=== PATIENT | female | born 2000 | race African-American/Black ===

== ENCOUNTER 2022-05-02 15:36 | Inpatient (IN) ==
[2022-05-02] MEDS ORDERED: MAGNESIUM SULF RIDER 4 GM/100 ML PREMIX IV ONE ×2 (16:47→16:49)
[2022-05-02] MEDS ORDERED: LABETALOL 100 MG/20 ML VIAL IV PRN ×3 (16:48→16:52)
[2022-05-02] MEDS: LACTATED RINGERS 1,000 ML IV SCH (16:57)
[2022-05-02] MEDS ORDERED: LABETALOL 200 MG TABLET PO SCH ×2 (17:09→21:00)
[2022-05-02 17:10] LABS: Basophils % 0.3 % (0.0-0.8); Eosinophils # 0.1 10*3/uL (0.0-0.87); Hematocrit 35.1 VOL% (35.7-47.0); Hemoglobin 12.1 GM/DL (12.0-16.0); Immature Granulocytes % 0.3 %; Immature Granulocytes Absolute 0.02 #; Lymphocytes # 2.2 10*3/uL (1.4-4.0); Lymphocytes % 31.7 % (21.3-54.2); Mean Corpuscular HGB Conc 34.5 GM/DL (32-36); Mean Corpuscular Volume 90.9 FL (87-102); Mean Platelet Volume 12.6 FL (9.6-12.0); Monocytes # 0.6 10*3/uL (0.11-0.8); Monocytes % 8.2 % (1.7-12.7); Neutrophils % 58.5 % (38.7-73.9); Platelet Count 167 T/CUMM (130-400); Red Blood Count 3.86 MC/CUMM (3.8-5.5); Red Cell Distribution Width 13.4 % (9.3-17.3); White Blood Count 7.1 T/CUMM (4-12)
[2022-05-02] MEDS: MAGNESIUM SULF DRIP 40 GM/1,000 ML ML IV SCH (17:10)
[2022-05-02] MEDS: BETAMETH SODIUM PHOS/ACETATE 30 MG/5 ML VIAL IM SCH (17:15)
[2022-05-02 17:19] LABS: Glucose,Urine (UA) Negative (Negative); Protein,Urine >=300 mg/dL (Negative); Urine Appearance Clear (Clear); Urine Color Yellow (Yellow); Urine Specific Gravity >= 1.030 (1.001-1.035); Urine pH 6.5 (4.5-8.0)
[2022-05-02 17:20] LABS: Bilirubin,Urine Negative (Negative); Blood, Urine Moderate mg/dL (Negative); Ketones,Urine Negative (Negative); Nitrite,Urine Negative (Negative); Urine Urobilinogen 0.2 eU/dL (<2.0)
[2022-05-02 17:24] LABS: Bacteria,Urine Occasional /HPF (Few); Hyaline Casts,Urine 45 /LPF (0-3); Mucus,Urine Occasional /LPF (Occasional); RBC,Urine 5 /HPF (0-4); Squamous Epithelial Cell,Urine Occasional /HPF (0-10)
[2022-05-02 17:31] LABS: INR 0.8; PT Patient Result 9.3 SECS (10.1-12.1); Partial Thromboplastin Time 25.3 SECS (23.7-32.9)
[2022-05-02 17:38] LABS: Alanine Aminotransferase 21 U/L (13-56); Albumin 2.3 G/DL (3.4-5.0); Alkaline Phosphatase 85 U/L (45-117); Aspartate Amino Transferase 30 U/L (0-37); Bilirubin,Direct < 0.050 MG/DL (0.0-0.20); Bilirubin,Total < 0.39 MG/DL (0.20-1.00); Blood Urea Nitrogen 13 MG/DL (7-18); Calcium 9.4 MG/DL (8.5-10.1); Carbon Dioxide 21 MMOL/L (21-32); Chloride 108 MMOL/L (98-107); Glucose 81 MG/DL (74-106); Osmolality,Calculated 271.8 MOS/KG (273-304); Potassium 4.1 MMOL/L (3.5-5.1); Sodium 137 MMOL/L (136-145); Total Protein 6.2 G/DL (6.4-8.2); Uric Acid 6.5 MG/DL (2.6-6.0)
[2022-05-02] MEDS: PANTOPRAZOLE 40 MG VIAL IV SCH (17:47)
[2022-05-02] MEDS ORDERED: hydrALAZINE 20 MG/1 ML VIAL ONE (18:27)
[2022-05-02] MEDS ORDERED: hydrALAZINE 20 MG/1 ML VIAL IV ONE ×2 (18:28→19:42)
[2022-05-02 21:33] LABS: Protein/Creatinine Ratio,Urine 52.7 RATIO
[2022-05-02] MEDS ORDERED: METHYLERGONOVINE 0.2 MG/1 ML AMP IM PRN (22:11)
[2022-05-02] MEDS ORDERED: ACETAMINOPHEN 325 MG TABLET PO PRN (22:11)
[2022-05-02] MEDS ORDERED: BUTORPHANOL 2 MG/ML VIAL IV PRN (22:11)
[2022-05-02] MEDS ORDERED: MEPERIDINE 25 MG/1 ML VIAL IM PRN (22:11)
[2022-05-02] MEDS ORDERED: TRANEXAMIC ACID 1,000 MG in SODIUM CHLORIDE 0.9% 100 ML IV PRN (22:11)
[2022-05-02] MEDS ORDERED: CARBOPROST TROMETHAMINE 250 MCG/ML AMP IM PRN (22:11)
[2022-05-02] MEDS ORDERED: miSOPROStoL 200 MCG TABLET RECTAL PRN (22:11)
[2022-05-02] MEDS ORDERED: OXYTOCIN/LR 20 UNIT/1,000 ML BAG IV ONE (22:11)
[2022-05-02] MEDS ORDERED: LACTATED RINGERS 500 ML IV PRN (22:11)
[2022-05-03] MEDS: LACTATED RINGERS 1,000 ML IV SCH ×2 (06:05→19:25)
[2022-05-03] MEDS: PANTOPRAZOLE 40 MG VIAL IV SCH (08:28)
[2022-05-03] MEDS ORDERED: LABETALOL 200 MG TABLET PO SCH (08:30)
[2022-05-03] MEDS: MAGNESIUM SULF DRIP 40 GM/1,000 ML ML IV SCH (13:15)
[2022-05-03 15:14] LABS: Basophils % 0.1 % (0.0-0.8); Hematocrit 35.1 VOL% (35.7-47.0); Hemoglobin 11.7 GM/DL (12.0-16.0); Immature Granulocytes % 0.6 %; Immature Granulocytes Absolute 0.06 #; Lymphocytes # 1.3 10*3/uL (1.4-4.0); Lymphocytes % 12.4 % (21.3-54.2); Mean Corpuscular HGB Conc 33.3 GM/DL (32-36); Mean Corpuscular Volume 93.1 FL (87-102); Mean Platelet Volume 12.2 FL (9.6-12.0); Monocytes # 0.9 10*3/uL (0.11-0.8); Monocytes % 8.5 % (1.7-12.7); Neutrophils % 78.4 % (38.7-73.9); Platelet Count 175 T/CUMM (130-400); Red Blood Count 3.77 MC/CUMM (3.8-5.5); Red Cell Distribution Width 13.9 % (9.3-17.3); White Blood Count 10.1 T/CUMM (4-12)
[2022-05-03 15:35] LABS: Alanine Aminotransferase 22 U/L (13-56); Albumin 2.4 G/DL (3.4-5.0); Alkaline Phosphatase 78 U/L (45-117); Aspartate Amino Transferase 24 U/L (0-37); Bilirubin,Total < 0.39 MG/DL (0.20-1.00); Blood Urea Nitrogen 13 MG/DL (7-18); Calcium 8.6 MG/DL (8.5-10.1); Carbon Dioxide 19 MMOL/L (21-32); Chloride 104 MMOL/L (98-107); Glucose 111 MG/DL (74-106); Osmolality,Calculated 270.1 MOS/KG (273-304); Potassium 4.3 MMOL/L (3.5-5.1); Sodium 135 MMOL/L (136-145); Total Protein 5.7 G/DL (6.4-8.2)
[2022-05-03] MEDS: LABETALOL 100 MG TABLET PO SCH ×2 (16:47→23:49)
[2022-05-03] MEDS: BETAMETH SODIUM PHOS/ACETATE 30 MG/5 ML VIAL IM SCH (17:45)
[2022-05-03 18:02] LABS: Total Protein 24 Hr Ur Result 4368 MG/24HR (0-149.1); Total Volume,Urine 1400 ML (400-2000)
[2022-05-03 18:43] LABS: Creatinine Clearance Urine 91.32 ML/MIN (70-115)
[2022-05-04] MEDS: LABETALOL 100 MG TABLET PO SCH (08:20)
[2022-05-04] MEDS: MAGNESIUM SULF DRIP 40 GM/1,000 ML ML IV SCH (09:01)
[2022-05-04] MEDS: MULTIVITAMIN (PRENATAL) TABLET PO SCH (09:27)
[2022-05-04] MEDS: PANTOPRAZOLE 40 MG VIAL IV SCH (09:28)
[2022-05-04] MEDS ORDERED: ceFAZolin 3,000 MG in SYRINGE 1 EACH IV ONE (11:27)
[2022-05-04] MEDS ORDERED: CITRIC ACID/SODIUM CITRATE 30 ML UDCUP PO ONE (11:27)
[2022-05-04] MEDS ORDERED: OXYTOCIN/LR 20 UNIT/1,000 ML BAG IV ONE ×3 (11:27→15:20)
[2022-05-04] MEDS ORDERED: FAMOTIDINE 20 MG/2 ML VIAL IV ONE (11:27)
[2022-05-04] MEDS ORDERED: miSOPROStoL 200 MCG TABLET ONE (12:54)
[2022-05-04] MEDS ORDERED: TRANEXAMIC ACID 1,000 MG/10 ML VIAL ONE (12:54)
[2022-05-04] MEDS ORDERED: SODIUM CHLORIDE 0.9% 0 ML IV ONE (12:54)
[2022-05-04] MEDS ORDERED: CARBOPROST TROMETHAMINE 250 MCG/ML AMP IM ONE (12:55)
[2022-05-04] MEDS ORDERED: ACETAMINOPHEN INJ 1,000 MG/100 ML VIAL IV ONE (13:09)
[2022-05-04] MEDS ORDERED: buprenorphine HCL 0.3 MG/ML VIAL ONE (13:09)
[2022-05-04] MEDS ORDERED: ONDANSETRON 4 MG/2 ML VIAL ONE (13:09)
[2022-05-04] MEDS ORDERED: PHENYLEPHRINE 1 MG/10 ML SYRINGE IV ONE (13:09)
[2022-05-04] MEDS ORDERED: KETOROLAC 30 MG/1 ML VIAL ONE ×2 (13:09→14:12)
[2022-05-04] MEDS ORDERED: TISSUE ADHESIVE 1 EACH APPLICATOR TOP ONE (13:39)
[2022-05-04] MEDS ORDERED: OXYTOCIN 10 UNIT/ML VIAL ONE (14:07)
[2022-05-04 14:24] LABS: Cord Arterial Blood HCO3 20.3 MMOL/L
[2022-05-04 14:28] LABS: Cord Venous Blood HCO3 20.4 MMOL/L; Cord Venous Blood PCO2 49.9 MMHG; Cord Venous Blood PO2 19.3
[2022-05-04] MEDS ORDERED: ACETAMINOPHEN 325 MG TABLET PO PRN (15:20)
[2022-05-04] MEDS ORDERED: SIMETHICONE CHEW 80 MG TABLET PO PRN (15:20)
[2022-05-04] MEDS ORDERED: RHO(D) IMMUNE GLOBULIN 300 MCG SYRINGE IM ONE (15:20)
[2022-05-04] MEDS ORDERED: ONDANSETRON 4 MG/2 ML VIAL IV PRN (15:20)
[2022-05-04] MEDS ORDERED: LACTATED RINGERS 1,000 ML IV SCH (15:30)
[2022-05-04] MEDS: LACTATED RINGERS 1,000 ML IV SCH (16:27)
[2022-05-04] MEDS: IBUPROFEN 800 MG TABLET PO PRN (17:47)
[2022-05-04] MEDS ORDERED: LABETALOL 100 MG TABLET PO SCH (21:00)
[2022-05-04] MEDS: DOCUSATE SODIUM 100 MG CAPSULE PO SCH (21:20)
[2022-05-05 03:56] LABS: Basophils % 0.1 % (0.0-0.8); Hematocrit 32.7 VOL% (35.7-47.0); Immature Granulocytes % 0.7 %; Immature Granulocytes Absolute 0.08 #; Lymphocytes # 1.2 10*3/uL (1.4-4.0); Lymphocytes % 9.8 % (21.3-54.2); Mean Corpuscular HGB Conc 33.6 GM/DL (32-36); Mean Corpuscular Volume 91.6 FL (87-102); Mean Platelet Volume 12.6 FL (9.6-12.0); Monocytes # 0.8 10*3/uL (0.11-0.8); Monocytes % 6.6 % (1.7-12.7); Neutrophils % 82.8 % (38.7-73.9); Platelet Count 153 T/CUMM (130-400); Red Blood Count 3.57 MC/CUMM (3.8-5.5); Red Cell Distribution Width 13.9 % (9.3-17.3); White Blood Count 12.3 T/CUMM (4-12)
[2022-05-05] MEDS: IBUPROFEN 800 MG TABLET PO PRN (05:43)
[2022-05-05] MEDS ORDERED: NON-FORMULARY MEDICATION (Prenatal Multivit-Min-Fe-Fa 1 mg Tablet) PO SCH (09:00)
[2022-05-05] MEDS: MULTIVITAMIN (PRENATAL) TABLET PO SCH (09:08)
[2022-05-05] MEDS: LACTATED RINGERS 1,000 ML IV SCH (09:36)
[2022-05-05] MEDS: MAGNESIUM HYDROXIDE SUSP 30 ML UDCUP PO PRN (19:59)
[2022-05-05] MEDS: DOCUSATE SODIUM 100 MG CAPSULE PO SCH (19:59)
[2022-05-06] MEDS: IBUPROFEN 800 MG TABLET PO PRN ×2 (00:29→09:30)
[2022-05-06] MEDS: DOCUSATE SODIUM 100 MG CAPSULE PO SCH ×2 (05:15→09:30)
[2022-05-06] MEDS: MULTIVITAMIN (PRENATAL) TABLET PO SCH (09:30)
[2022-05-06] MEDS: MAGNESIUM HYDROXIDE SUSP 30 ML UDCUP PO PRN (09:30)
[2022-05-06 11:32] VITALS: BP 137/79
== END 2022-05-06 12:10 | disposition home or self-care (01) | DRG 787 ==
LOC: N.LDOUT 15:36 → N.LD 15:36 → N.OB 05-05 14:23
PROVIDERS: ADMIT Obstetrics & Gynecology; ATTEND Obstetrics & Gynecology
PROC: LDCSECT (ICD-10-PCS; 2022-05-04 13:30)